=== PATIENT | male | born 1945 | race Caucasian/White ===

== ENCOUNTER 2019-04-22 00:29 | Day surgery (SDC) | payer MEDICARE, OTHER, SELFPAY ==
--- NOTE | 2019-04-21 17:23 | WPDANESEPP ---
Anes - Eval Pre Procedure Procedure: Colonoscopy Operation Date: 04/22/19 08:00 Proposed Procedures p Screening Colonoscopy - Drew Johansen MD Date/Time: 04/21/19 17:23 Surgeon: Haily Pre Op Diagnosis: Neoplasm Screening Patient Data Age: 73 Gender: M Height: Weight: Allergies Allergy/AdvReac Type Severity Reaction Status Date / Time No Known Allergies Allergy Mild Verified 04/17/19 10:13 Home Medications Medication Instructions Recorded Confirmed Type folic acid 1 mg PO DAILY 04/17/19 04/17/19 History infliximab [Remicade] 100 mg IV WEEKLY 04/17/19 04/17/19 History losartan 25 mg PO DAILY 04/17/19 04/17/19 History methotrexate sodium (PF) 25 mg SUBCUT DAILY 04/17/19 04/17/19 History metoprolol succinate 100 mg PO DAILY 04/17/19 04/17/19 History Patient hx anesthesia problems: none Family hx anesthesia problems: none PMFSH Past Medical History Medical History (Updated 04/21/19 @ 17:25 by Philipp Huerta CRNA) Hypertension Myocardial infarct JUN on CPAP Surgical History Surgical History History of arthroscopic surgery of shoulder Exam Day of Procedure 04/21/19 17:23
[2019-04-22 07:10] VITALS: BP 128/90; PULSE 79; RESP 14; TEMP 36.4; O2SAT 97
--- NOTE | 2019-04-22 07:11 | WPDANESEFPP ---
Anes - Eval Final PreProcedure Day of Procedure 04/22/19 07:11 Patient weight: obese Heart: regular rate and rhythm Lungs: clear to auscultation Airway: Mallampati scale class II Neurological: alert and oriented Last oral intake: >/= 8 hours ASA classification: III Anesthetic plan: proceed Anesthesia type and monitoring: general GIVS and standard monitoring Informed Consent: The patient's anesthetic plan and its attendant risks and benefits were discussed with the patient/family/POA. Questions were solicited and answers provided to the satisfaction of the patient/family/POA.
[2019-04-22] MEDS: LACTATED RINGERS 1,000 ML 150 ML IV CONT (07:18)
--- NOTE | 2019-04-22 08:06 | WPDGICN ---
Assessment and Plan Additional Plan This is a 73-year-old white male patient seen in evaluation at the request of Ronnie Servin. Patient presents for neoplasia screening. He states his current weight appetite bowel movements are normal. He denies any blood in his stools. He denies abdominal pain. His weight has remained stable. Family history is noncontributory. There is no known history of colon or rectal disease. Past medical history is significant for rheumatoid arthritis. He is also known to have atherosclerotic heart disease. He has no known drug allergies. Current medications include folic acid. Toploll. Losartan. Aspirin. And iron. Physical exam reveals patient to be alert. Vital signs stable. HEENT exam unremarkable. Lungs are clear to auscultation and percussion. Heart is without murmur or extra sounds. Abdominal exam bowel sounds are present soft nontender with no organomegaly. Digital external rectal exam is normal. Impression 1. Neoplasia screening. Plan is to proceed with screening colonoscopy today. 2. Atherosclerotic heart disease. Current we stable being treated with medications. 3. Rheumatoid arthritis. Clinically stable. Plan is to proceed with screening colonoscopy. GI Consult Note Consult date/time: 04/22/19 08:06 HPI: Maikel Beverly is a 73 year old male [facility] Past Medical History Medical History (Updated 04/21/19 @ 17:25 by Philipp Huerta CRNA) Hypertension Myocardial infarct JUN on CPAP Surgical History Surgical History History of arthroscopic surgery of shoulder Meds Home Medications and Allergies Home Medications Medication Instructions Recorded Confirmed Type folic acid 1 mg PO DAILY 04/17/19 04/22/19 History infliximab [Remicade] 100 mg IV USEASDIRECTD 04/17/19 04/22/19 History losartan 25 mg PO DAILY 04/17/19 04/22/19 History methotrexate sodium (PF) 25 mg SUBCUT WEEKLY 04/17/19 04/22/19 History metoprolol succinate 100 mg PO DAILY 04/17/19 04/22/19 History Allergies Allergy/AdvReac Type Severity Reaction Status Date / Time No Known Allergies Allergy Mild Verified 04/22/19 07:09 Vital Signs Vital Signs - 24 hr 04/22/19 07:10 Temperature 36.4 C L Pulse Rate 79 Respiratory Rate 14 Blood Pressure 128/90 Pulse Oximetry 97
[2019-04-22] MEDS: SIMETHICONE ORAL SUSPENSION 20 MG/0.3 ML 30 ML BOTTLE 0.6 ML IRRIGATION (08:31)
[2019-04-22 08:45] VITALS: BP 112/72; PULSE 66; RESP 24; O2SAT 98
[2019-04-22 08:55] VITALS: BP 125/76; PULSE 61; RESP 16; O2SAT 98
[2019-04-22 09:05] VITALS: BP 129/70; PULSE 60; RESP 17; O2SAT 99
== END 2019-04-22 09:20 | disposition home or self-care (01) ==
PROVIDERS: Visit Provider Internal Medicine Gastroenterology
PROC: 0DJD8ZZ Inspection of Lower Intestinal Tract, Via Natural or Artificial Opening Endoscopic (ICD-10-PCS; CPT 45378; principal; 2019-04-22 08:00)
DX: Z12.11 Encounter for screening for malignant neoplasm of colon (principal); D12.8 Benign neoplasm of rectum; K57.30 Diverticulosis of large intestine without perforation or abscess without bleeding; M06.9 Rheumatoid arthritis, unspecified; I25.10 Atherosclerotic heart disease of native coronary artery without angina pectoris; I10 Essential (primary) hypertension; I25.2 Old myocardial infarction; G47.33 Obstructive sleep apnea (adult) (pediatric); Z79.82 Long term (current) use of aspirin
CPT/HCPCS: 45385; 88305; J2704; J7120

== ENCOUNTER 2022-01-19 16:24 | Emergency (ER) | payer MEDICARE, OTHER, SELFPAY ==
[2022-01-19 16:28] VITALS: BP 132/63; PULSE 77; RESP 18; TEMP 36.4; O2SAT 98
--- NOTE | 2022-01-19 17:15 | ED.BACK ---
HPI - Back Pain/Injury General Chief Complaint: Back Pain/Injury Stated Complaint: back pain Time Seen by Provider: 01/19/22 17:07 Source: patient Mode of arrival: ambulatory Limitations: no limitations History of Present Illness HPI Narrative: Presents c/o RT lower back pain that started while playing golf this afternoon. States swung golf club and felt a strain RT low back. Denies radiation of pain, change in bowel or bladder, change in strength to lower extremities. Intermittent hx low back pain at times. Denies other problems or c/o at this time. Related Data Home Medications Medication Instructions Recorded Confirmed folic acid 1 mg tablet 1 mg PO DAILY 04/17/19 04/22/19 infliximab 100 mg intravenous 100 mg IV USEASDIRECTD 04/17/19 04/22/19 solution (Remicade) losartan 25 mg tablet 25 mg PO DAILY 04/17/19 04/22/19 methotrexate sodium (PF) 25 mg/mL 25 mg subcut WEEKLY 04/17/19 04/22/19 injection solution metoprolol succinate 100 mg 100 mg PO DAILY 04/17/19 04/22/19 tablet,extended release 24 hr Allergies Allergy/AdvReac Type Severity Reaction Status Date / Time No Known Allergies Allergy Mild Verified 04/22/19 07:09 Review of Systems Review of Systems: CONSTITUTIONAL: Denies fever, chills, or sweats. EYES: Denies visual changes, redness, or discharge. ENT: Denies rhinorrhea, congestion, sore throat, or otalgia. CARDIOVASCULAR: Denies chest pain, palpitations, or edema. RESPIRATORY: Denies cough or dyspnea. GASTROINTESTINAL: Denies abdominal pain, nausea, vomiting, or diarrhea. GENITOURINARY: Denies dysuria or hematuria. SKIN: Denies rash or itching. MUSCULOSKELETAL: RT low back pain NEUROLOGIC: Denies headache, numbness, or weakness. PSYCHIATRIC: Denies anxiety or depression. [facility] Past Medical History Medical History (Updated 01/19/22 @ 17:23 by Dionicio Salcido APRN) Hypertension Myocardial infarct JUN on CPAP Strain of lumbar region Surgical History Surgical History History of arthroscopic surgery of shoulder Exam Narrative: GENERAL: Well-appearing, well-nourished, and in no acute distress. HEAD: Normocephalic, atraumatic. EYES: PERRLA and EOMI. ENT: Nares clear, no rhinorrhea or epistaxis. Mucous membranes moist. NECK: Supple. CHEST: Clear to auscultation. No respiratory distress. HEART: Regular rate and rhythm. No murmur heard. Normal peripheral pulses. ABDOMEN: Soft, nontender, nondistended, normal active bowel sounds. EXTREMITIES: Normal range of motion. No edema. MUSCULOSKELETAL: Tender palpation RT low back toward top of pelvis. Denies midline back pain with palpation. Ambulating with stooped over gait but does so without diff. SKIN: Warm, dry, no rash. NEURO: No focal deficits. Alert and oriented x3. PSYCH: Normal mood and affect. Course Vital Signs Vital signs: Vital Signs Temperature 36.4 C L 01/19/22 16:28 Pulse Rate 77 01/19/22 16:28 Respiratory Rate 18 01/19/22 16:28 Blood Pressure 132/63 01/19/22 16:28 Pulse Oximetry 98 01/19/22 16:28 Oxygen Delivery Room Air 01/19/22 16:28 Temperature 36.4 C L 01/19/22 16:28 Pulse Rate 77 01/19/22 16:28 Respiratory Rate 18 01/19/22 16:28 Blood Pressure 132/63 01/19/22 16:28 Pulse Oximetry 98 01/19/22 16:28 Oxygen Delivery Room Air 01/19/22 16:28 Discharge Plan Discharge Clinical Impression: Strain of lumbar region Patient Disposition: Home, Self-Care Condition: Stable Instructions: Antibiotic Form, Acute Low Back Pain (ED) Prescriptions: New cyclobenzaprine 10 mg tablet 10 mg PO TID PRN (Reason: muscle spasm) Qty: 14 0RF tramadol 50 mg tablet 50 mg PO Q6H PRN (Reason: pain) Qty: 14 0RF No Action metoprolol succinate 100 mg tablet extended release 24 hr 100 mg PO DAILY Remicade 100 mg Recon Soln 100 mg IV USEASDIRECTD Rx Instructions: Q 6 WEEKS losartan 25 mg t
[2022-01-19] MEDS: CYCLOBENZAPRINE HCL 10 MG TABLET PO (17:23)
[2022-01-19] MEDS: KETOROLAC 30 MG/ML VIAL (*BKC) IM (17:23)
== END 2022-01-19 17:38 | disposition home or self-care (01) ==
PROVIDERS: Emergency Provider Nurse Practitioner; PCP Internal Medicine
DX: S39.012A Strain of muscle, fascia and tendon of lower back, initial encounter (principal); I25.2 Old myocardial infarction; I10 Essential (primary) hypertension; X50.0XXA Overexertion from strenuous movement or load, initial encounter; Y93.53 Activity, golf
CPT/HCPCS: 96372; 99283; A9270; J1885

== ENCOUNTER 2022-12-29 03:45 | Emergency (ER) | payer MEDICARE, OTHER, SELFPAY ==
[2022-12-29] VITALS (19 sets, daily range): BP systolic 97–118; BP diastolic 58–86; PULSE 74–102; RESP 17–29; TEMP 37.2–39.2; O2SAT 94–100
--- NOTE | ~2022-12-29 | XR_ITS ---
Portable chest x-ray Comparison: None Clinical History: Fever Findings: Left upper lobe consolidation is compatible with pneumonia. Calcified right midlung granul malena present. No pleural effusion or pneumothorax. Cardiomediastinal silhouette is unremarkable. Bone s and soft tissues are unremarkable. Impression: Left upper lobe pneumonia. Follow-up to radiographic resolution is advised. Reviewed, dictated and finalized at location . Impression: Left upper lobe pneumonia. Follow-up to radiographic resolution is advised.
--- NOTE | 2022-12-29 07:20 | PC.NURSE ---
Patient report received from GHAZALA Helton. All questions answered and care of patient assumed.
--- NOTE | 2022-12-29 07:26 | ED.FEVER ---
HPI - Fever General Chief Complaint: Fever Stated Complaint: fever Time Seen by Provider: 12/29/22 06:54 History of Present Illness HPI Narrative: 77-year-old male presented the emergency department for evaluation of intermittent fever. Patient states since receiving his flu shot he has had increased fatigue and fever. Patient has been taking 500 of Tylenol 3 times a day with no significant improvement in the fever. Patient states he did have some shortness of breath but denies any current shortness of breath. Related Data Home Medications Medication Instructions Recorded Confirmed folic acid 1 mg tablet 1 mg PO DAILY 04/17/19 04/22/19 infliximab 100 mg intravenous 100 mg IV USEASDIRECTD 04/17/19 04/22/19 solution (Remicade) losartan 25 mg tablet 25 mg PO DAILY 04/17/19 04/22/19 methotrexate sodium (PF) 25 mg/mL 25 mg subcut WEEKLY 04/17/19 04/22/19 injection solution metoprolol succinate 100 mg 100 mg PO DAILY 04/17/19 04/22/19 tablet,extended release 24 hr Allergies Allergy/AdvReac Type Severity Reaction Status Date / Time No Known Allergies Allergy Mild Verified 04/22/19 07:09 Review of Systems Review of Systems: All systems reviewed & are unremarkable except as noted in HPI and below PMFSH Past Medical History Medical History (Updated 12/29/22 @ 09:45 by Dereje Wheat MD) Hypertension Myocardial infarct JUN on CPAP Strain of lumbar region Surgical History Surgical History History of arthroscopic surgery of shoulder Exam Narrative: APPEARANCE: Well appearing, no pain, no distress, well-nourished. HEAD: normocephalic, atraumatic. EYES: PERRLA/EOMI, conjunctivae clear. NOSE: Normal no drainage NECK: Supple. No adenopathy, no masses. RESPIRATORY: Airway patent, respirations nonlabored. Clear to auscultation bilaterally, no rales, rhonchi, wheezing. CARDIOVASCULAR: Regular rate and rhythm without murmurs rubs or gallops. ABDOMINAL: Soft, nontender, nondistended, normal bowel sounds MUSCULOSKELETAL: Moves all extremities. Strength/ROM intact, No edema, No calf tenderness. NEURO: Alert. Cranial nerves II through XII intact. Grossly intact SKIN: Warm, dry. Normal Color Course Course Emergency Course: -year-old male presented the emergency department for evaluation of cough and congestion. Patient x-ray did show evidence of pneumonia and patient was started on Augmentin and azithromycin in the emergency department. Patient's influenza RSV and COVID were negative. Patient is afebrile with a normal heart rate and pulse ox in the ED. Patient states he does feel strong enough for discharge to home. Patient and family are updated on the results of the work-up and on reasons to return to the emergency department. All questions and concerns were addressed Vital Signs Vital signs: Vital Signs Temperature 102.5 F H 12/29/22 03:48 Pulse Rate 102 H 12/29/22 03:48 Respiratory Rate 22 H 12/29/22 03:48 Blood Pressure 118/58 L 12/29/22 03:48 Pulse Oximetry 98 12/29/22 03:48 Oxygen Delivery Room Air 12/29/22 03:48 Temperature 98.9 F 12/29/22 08:13 Pulse Rate 75 12/29/22 09:46 Respiratory Rate 17 12/29/22 09:46 Blood Pressure 114/70 12/29/22 09:46 Pulse Oximetry 96 12/29/22 09:46 Oxygen Delivery Room Air 12/29/22 03:48 MDM - Fever Differential Diagnosis Differential diagnosis: Likely community acquired pneumonia, viral infection and influenza Lab Data Attestation: I reviewed the patient's lab results. Labs: Lab Results 12/29/22 Range/Units 07:33 Urine Color Dark yellow (Yellow) Urine Appearance Cloudy H (Clear) Urine pH 6.0 (5.0-9.0) Ur Specific [place] 1.024 (1.001-1.035) Urine Protein 3+ H (Negative) mg/dL Urine Glucose (UA) Negative (Negative) mg/dL Urine Ketones Trace H (Negative) mg/dL Ur Blood (Man) 3+ H (Negative) Urine Nitrate Negative (N
[2022-12-29] MEDS: IBUPROFEN 600 MG TABLET PO (07:36)
[2022-12-29] MEDS: ACETAMINOPHEN 325 MG TABLET 650 MG PO (07:37)
[2022-12-29] MEDS: AZITHROMYCIN 250 MG TABLET 500 MG PO (08:04)
[2022-12-29] MEDS: AMOXICILLIN/CLAVULANATE K 875-125 MG TAB 1 TABLET PO (08:04)
[2022-12-29 08:08] LABS: Appearance Urine Cloudy (Clear); Bacteria Urine None Seen /hpf; Bilirubin Urine Negative (Negative); Blood Urine 3+ (Negative); Color Urine Dark Yellow (Yellow); Glucose Urine UA Negative (Negative); Granular Casts Urine Present /lpf; Ketones Urine Trace mg/dL (Negative); Leukocyte Esterase Ur Negative LEU/UL (Negative); Nitrate Urine Negative (Negative); Protein Urine 3+ mg/dL (Negative); RBC Urine 0-2 /hpf (0-2); Specific Grav Ur 1.024 (1.001-1.035); Squamous Epithelial Cell Urine Occasional /hpf (Few); WBC Urine 0-5 /hpf
[2022-12-29 08:15] LABS: Influenza A QL RT-PCR Negative (Negative); Influenza B QL RT-PCR Negative (Negative); RSV RNA, RT-PCR Negative (Negative); SARS-CoV-2 RNA PCR Negative (Negative)
[2022-12-29 08:17] LABS: Add Urine Microscopic? YES
[2022-12-29] MEDS: SODIUM CHLORIDE 0.9% IV 500 ML 999 ML IV CONT (08:42)
== END 2022-12-29 10:00 | disposition home or self-care (01) ==
PROVIDERS: Emergency Provider Emergency Medicine; PCP Internal Medicine
DX: J18.9 Pneumonia, unspecified organism (principal); Z20.822 Contact with and (suspected) exposure to COVID-19; I10 Essential (primary) hypertension; I25.2 Old myocardial infarction; G47.33 Obstructive sleep apnea (adult) (pediatric)
CPT/HCPCS: 71045; 81001; 87637; 96360; 99283; A9270; J7040

== ENCOUNTER 2023-11-07 08:00 | Outpatient (RCR) | payer MEDICARE, OTHER, SELFPAY ==
--- NOTE | 2023-08-31 10:39 | OPREHPOC ---
Outpatient Therapy Plan of Care This is a Multidisciplinary Plan of Care that may contain components documented by all disciplines (PT, OT, and ST.) PT Problem 1 PT Problem #1 Knowledge Deficit PT Goal 1 Goal *indep with HEP for land and water Target Visit 7 PT Problem 2 PT Problem #2 Impaired Strength PT Goal 1 Goal increase LE strength and mobility skills: 1* 5 reps sit/stand time of 24 seconds 2* sit/stand from 18 seat with 1 UE use 3* 2 minute walking test distance of 375' 4* Oswestry self assessment rating of 46% limitation in activity level Target Visit 7
--- NOTE | 2023-08-31 10:40 | PTOPEVAL1 ---
Assessment and note entered by Cheyenne Ambrosio, PT Evaluation Information Assessment Status Evaluation Diagnosis chronic pain-- neck, shoulders, back Onset 6 months ago Subjective Information scheduled to have R THR Nov 04, have to wait due to medical condition with meds for RA and red blood cell disease want to do aquatic therapy to get stronger before hip surgery; have not ever done aquatic therapy. have had PT in the past; Activity: use cane or rollator; 3 entry steps into home with railing; lift chair to basement; indep with bathing, dressing; drives; at home, have been doing some bicycling, but not able due to hip pain; do some mat exercises for legs and arm weights. Reported Pain Level Pain Score Self Report Additional Pain Score Comments pain range in the past week 2-10/10; chronic pain in neck, shoulders, back, hips take prescription and over the counter meds; reported tolerances: sleeping awaken 4-5x/night; standing/walking few minutes; Assessment PT Clinical Summary Maikel has the diagnosis of chronic pain, multiple areas. He has RA and is going to have R THR in October. Order for aquatic therapy. Oswestry self assessment 54% limitation in activity. Chronic pain in neck, shoulders, back and legs, which limits his sleeping and walking tolerances. He has access to a pool to do exercises. With the evaluation: decreased R hip ROM and strength of bilateral LE's; limited exercises and activity level due to R hip and pain. 2 minutes walking test distance of 320' wtih rollator and 5 reps sit/stand time of 32 seconds with use of both UE's. Skilled PT services are indicated for aquatic therapy--to increase LE strength and education for HEP for him to continue with aquatic exercises. Plan of Care Interventions Aquatic Therapy,Patient Education, Therapeutic Activities PT Services Indicated Yes Treatment Frequency and 1-2x/wk for 7 visits Duration These treatments will address the objective and functional deficits as defined above. T
--- NOTE | 2023-09-19 08:56 | PCPTNOTE ---
Pt was canceled by the facility due to pool Maintenance.
--- NOTE | 2023-11-07 08:49 | PTOPDC ---
Assessment and note entered by Cheyenne Ambrosio, PT Discharge Report Assessment Status Discharge Diagnosis chronic pain-- neck, shoulders, back Onset 6 months ago Subjective Information scheduled for surgery Dec 30; hip continues to be bad, just waiting for surgery; therapy did not really help; cannot do exercises due to pain; in the house, he is using a tall walker with forearm support, that helps some; Reported Pain Level Pain Score Self Report Additional Pain Score Comments pain of 8-10/10 ice and rest help pain; tylenol - 3x/day have oxycodone, but do not want to take it, sometimes at night for sleeping; Assessment PT Clinical Summary Maikel has received 8 PT sessions. Aquatic exercises for strengthening. Compared to the initial evaluation: pain rating remains high, up to 10/10 with sleep disrupted; self assessment limitation in activity level from 54% to 70% limitation; 5 reps sit/stand time worse, from 32 to 44 seconds; 2 minute walking test distance with rollator from 320' to 180'; due to pain, he cannot tolerate mat exercises; aquatic exercises also increased his pain; he is able to do some sitting exercises; He reports at home, he has a tall walker, with platform for UE support that helps him walk a little more. Discussed with pt using compression shorts or velcro-groin and thigh support compression for assist with pain. He is going to look into obtaining them. Discharge PT. He is to continue with the sitting exercises and walking as tolerated. And is awaiting THR in December. Plan of Care PT Services Indicated No
== END 2023-11-07 09:26 | disposition home or self-care (01) ==
LOC: ANHPT 08:00
PROVIDERS: PCP Internal Medicine; Visit Provider Internal Medicine
DX: M50.120 Mid-cervical disc disorder, unspecified level (principal); M25.511 Pain in right shoulder; M25.512 Pain in left shoulder; M46.90 Unspecified inflammatory spondylopathy, site unspecified; G89.29 Other chronic pain
CPT/HCPCS: 97110; 97113; 97161; 97530